=== PATIENT | male | born 1965 | race Caucasian/White ===

== ENCOUNTER → 2016-08-15 | Outpatient (CLI) | payer OTHER ==
--- NOTE | 2016-08-15 11:30 | ECHOS ---
DATE OF SERVICE: 08/15/2016 AGE: 51Y SEX: M HT: 71" WT: 168 lbs. Protocol Alexander: X Others: Stress Echo Stage: 4 Dur. of Exercise: 11:00 *Heart Rate Blood Pressure *Rest: 65 Rest: 108/59 * *Max. Achieved: 151 Maximum BP: 163/69 85% PMHR: 145 100% PMHR: 171 *METS: 12.1 INDICATIONS: Abnormal EKG. MEDICATIONS: - CLINICAL INFORMATION: Family history of coronary artery disease. Quit smoking 28 years ago. Resting ECG shows sinus rhythm, rate of 65 beats per minute, AR interval of 0.08, QRS 0.10, incomplete right bundle branch block. Utilizing a standard Alexander protocol, a symptom-limited treadmill test was performed. Patient exercised for total of 11 minutes, attained a peak heart rate of 151 beats per minute, which is approximately 88% of predicted maximal heart rate without any chest pain or pressure or ST segment deviations indicative of ischemia. Post exercise images shows improved contractibility and thickening consistent with normal study. IMPRESSION: 1. Normal stress echocardiogram. 2. The patient has above average level of cardiopulmonary fitness as indicated by O2 max and METs. 3. Patient attained peak metabolic activity equivalent to 12 METs. 4. Patient did not report any symptoms throughout the study, no ST segment deviations indicative of ischemia were noted in any of the monitoring 12 leads.
== END | disposition home or self-care (01) ==
LOC: RADNMMAIN 09:08
PROVIDERS: ATTEND Family Medicine
DX: R94.31 Abnormal electrocardiogram [ECG] [EKG] (principal)
CPT/HCPCS: 93017; 93350

== ENCOUNTER → 2020-05-09 | Outpatient (CLI) | payer OTHER ==
--- NOTE | 2020-05-09 13:45 | CONS ---
CONSULTATION DATE OF SERVICE: 05/09/2020 This 55-year-old gentleman evaluated in the sleep center for possible obstructive sleep apnea-hypopnea syndrome. HISTORY OF PRESENT ILLNESS, SLEEP-WAKE EVALUATION: Patient usual sleep schedule on weekdays from midnight or 1 a.m. until 6:30 a.m.; on weekends from midnight or 1 a.m. until 8 a.m. No problems with falling asleep, although patient has TV set in bedroom. He usually sleeps on the side and back position. According to his , he snores and has witnessed episodes of stopped breathing during sleep. Occasionally, he wakes up with episodes of choking. During the day, he may feel sleepiness. [place] Sleepiness Scale close to the border is at 9. No history of hypnagogic hallucinations, sleep paralysis or cataplexy. During the sleep, patient also may have jerking movements. PAST MEDICAL HISTORY: Basically negative. MEDICATIONS: None. PAST SURGICAL HISTORY: None. FAMILY HISTORY: Positive for hypertension, arthritis, snoring, colon cancer. REVIEW OF SYSTEMS: Awakenings from sleep with episodes of choking, witnessed episodes of stopped breathing during sleep and snoring. PHYSICAL EXAMINATION: GENERAL: gentleman without distress. VITAL SIGNS: BP 129/82, HR 66, RR 16, height 6 feet 1-1/2 inches, weight 171.2 pounds, BMI 22.2, temperature 98.2, oxygen saturation at room air 100%. HEENT: PERRLA, EOMI. Oropharynx moderately low position of soft palate with uvula. NECK: 16 inches in circumference. LUNGS: Clear to percussion and to auscultation. Good air exchange. No wheezing or rhonchi. HEART: S1, S2 regular. No murmurs, gallops, or rubs. ABDOMEN: Soft and nontender. Bowel sounds are present. No organomegaly appreciated. EXTREMITIES: No clubbing or cyanosis. [employer]ORT FIREMAN: Awake, alert, and oriented X3. Cranial nerves 2 to 7 intact. There is no fasciculation or atrophy. noted. No focal deficits observed. IMPRESSION: 1. Snoring. 2. Witnessed episodes of stopped breathing during sleep, moderately low position of soft palate, possible obstructive sleep apnea-hypopnea syndrome. 3. History of episodes of jerking movements during the sleep. 4. Occasionally awakenings from sleep. PLAN: 1. Home sleep apnea test for evaluation of patient's breathing during the sleep. 2. Following plan after reviewing results of sleep study. 3. Sleep hygiene with regular time in bed for at least 7-1/2 to 8 hours. 4. No driving if feeling any sleepiness. Thank you very much for referring this patient for consultation. Sincerely, Mark Zapata MD, PhD, FAASM Diplomat of [employer] Charge Manager of [facility] [place] MMODL / IJN: [id number] /
== END | disposition home or self-care (01) ==
LOC: SLEEP 11:06
PROVIDERS: ATTEND Internal Medicine
DX: R06.83 Snoring (principal); Z86.59 Personal history of other mental and behavioral disorders
CPT/HCPCS: 99211

== ENCOUNTER 2023-03-10 08:02 | Day surgery (SDC) | payer OTHER ==
[~2023-03-10 08:02] MED LIST: LACTATED RINGERS 1,000 ML IV SCH
[2023-03-10 08:26] VITALS: TEMP 97.1
[2023-03-10] MEDS ORDERED: PROPOFOL 10 MG/ML 20 ML VIAL IV ONE (09:15)
--- NOTE | 2023-03-10 09:16 | P.GSHP ---
History of Present Illness H&P Date: 03/10/23 Chief Complaint: Family history of colon cancer 57-year-old male here today for colonoscopy. He has had 2 priors. No bowel complaints. Family history of colon cancer in his father. Past Medical History Past Medical History: No Reported History History of Any Multi-Drug Resistant Organisms: None Reported Additional Past Surgical History / Comment(s): colonoscopy, wisdom teeth Past Anesthesia/Blood Transfusion Reactions: No Reported Reaction Smoking Status: Former smoker Medications and Allergies Home Medications Medication Instructions Recorded Confirmed Type Ascorbic Acid [Vitamin C] 500 mg PO DAILY 03/06/23 03/10/23 History Allergies Allergy/AdvReac Type Severity Reaction Status Date / Time No Known Allergies Allergy Verified 03/10/23 08:19 Surgical - Exam Vital Signs Temp Pulse Resp BP Pulse Ox 97.1 F L 67 16 118/75 98 03/10/23 08:23 03/10/23 08:23 03/10/23 08:23 03/10/23 08:23 03/10/23 08:23 Physical exam: General: Well-developed, well-nourished HEENT: Normocephalic, sclerae nonicteric Abdomen: Nontender, nondistended Extremities: No edema Neuro: Alert and oriented Assessment and Plan (1) Colon cancer screening Narrative/Plan: Will proceed with colonoscopy at this time. Current Visit: Yes Status: Acute Code(s): Z12.11 - ENCOUNTER FOR SCREENING FOR MALIGNANT NEOPLASM OF COLON SNOMED Code(s): 723774396
--- NOTE | 2023-03-10 09:33 | P.PCN ---
Date of Procedure: 03/10/23 Procedure(s) Performed: PREOPERATIVE DIAGNOSIS: Colon cancer screening, family history of colon cancer POSTOPERATIVE DIAGNOSIS: Ascending colon polyp, diverticulosis PROCEDURE: Colonoscopy with snare polypectomy ANESTHESIA: MAC SURGEON: Dilan Kelly M.D. SPECIMENS: Polyp ENDOSCOPIC PROCEDURE: The patient was placed on the endoscopy table in the left decubitus position. The Olympus colonoscope was inserted into the anus and passed under direct visualization to the base of the cecum. The appendiceal orifice was visualized. From that point the scope was slowly withdrawn inspecting all surfaces carefully. There were no neoplastic inflammatory or polypoid lesions throughout the cecum. In the ascending colon a small polyp was seen and removed using the snare with cautery technique. The remainder of the ascending transverse descending sigmoid and rectum appeared normal. There was mild left-sided diverticulosis. Digital rectal examination was normal. The patient was taken to the recovery room in stable condition per anesthesia guidelines. RECOMMENDATIONS: Await biopsy results. Repeat colonoscopy 5 years.
[2023-03-10 10:21] VITALS: BP 107/64; PULSE 68; RESP 18
== END 2023-03-10 10:16 | disposition home or self-care (01) ==
LOC: ORWHC2ENDO 08:02
PROVIDERS: ATTEND Surgery
DX: Z12.11 Encounter for screening for malignant neoplasm of colon (principal); K63.5 Polyp of colon; K57.30 Diverticulosis of large intestine without perforation or abscess without bleeding; Z80.0 Family history of malignant neoplasm of digestive organs; Z87.891 Personal history of nicotine dependence; Z79.899 Other long term (current) drug therapy
CPT/HCPCS: 45385; J2704; 88305